=== PATIENT | male | born 1965 | race African-American/Black ===

== ENCOUNTER 2021-01-01 12:56 | Inpatient (IN) | payer MEDICAID ==
[~2021-01-01] VITALS: Ht 175.3 cm; Wt 79.4 kg
[2021-01-01] MEDS ORDERED: MORPHINE SULFATE 4 MG/ML CPJ (NOT FOR IM USE) IV ONE (13:45)
[2021-01-01] MEDS ORDERED: AZITHROMYCIN 500 MG in DEXT 5% WATER 250 ML IV ONE (13:45)
[2021-01-01] MEDS ORDERED: VANCOMYCIN 1 G PREMIX 200 ML IV ONE (13:45)
[2021-01-01] MEDS ORDERED: PIPERACILLIN/TAZ 3.375G PREMIX 50 ML IV ONE (13:45)
[2021-01-01 13:54] LABS: BASOPHILS % 0.2 % (0.0-2.0); EOSINOPHILS % 0.3 % (0.0-5.0); HEMATOCRIT. 46.9 % (42.0-52.0); LYMPHOCYTES % 15.9 % (20.0-50.0); MEAN CORPUSCULAR HEMOGLOBIN 30.8 pg (28.0-32.0); MEAN CORPUSCULAR VOLUME 90.2 fL (80.0-94.0); MEAN PLATELET VOLUME 8.4 fl (7.4-10.4); MONOCYTES % 9.6 % (2.0-8.0); PLATELET 219 x1000/uL (130-400); RED CELL DISTRIBUTION WIDTH 13.3 % (11.6-14.6)
[2021-01-01 14:16] LABS: CHLORIDE 101 mEq/L (98-107)
[2021-01-01] MEDS ORDERED: ONDANSETRON HCL 4MG/2ML INJ IV PRN (16:15)
[2021-01-01] MEDS ORDERED: ACETAMINOPHEN 325MG TABLET PO PRN ×2 (16:15)
[2021-01-01] MEDS ORDERED: ZOLPIDEM TARTRATE 5MG TABLET PO PRN (16:15)
[2021-01-01] MEDS ORDERED: DOCUSATE SODIUM 100MG CAPSULE PO PRN (16:15)
[2021-01-01] MEDS ORDERED: ALBUTEROL 6.7GM HFA INHALER ORI PRN (16:15)
[2021-01-01] MEDS ORDERED: CLONIDINE 0.1MG TABLET PO PRN (16:15)
[2021-01-01] MEDS ORDERED: CEFTRIAXONE 1 G PREMIX 50 ML IV SCH ×2 (16:30→19:30)
[2021-01-01] MEDS ORDERED: NITROGLYCERIN 0.4MG TABLET SL SL PRN (16:45)
[2021-01-01] MEDS: ENOXAPARIN 40MG/0.4ML SYR SUBCUT SCH (17:00)
[2021-01-01 17:11] LABS: FOLIC ACID (FOLATE) SERUM 12.8 ng/mL (>5.38)
[2021-01-01] MEDS: GUAIFENESIN/DM 600MG/30MG ER TAB 12HR PO SCH (17:50)
[2021-01-01] MEDS: DILTIAZEM HCL 30MG TABLET PO SCH (18:00)
[2021-01-01] MEDS ORDERED: AZITHROMYCIN 500 MG in DEXT 5% WATER 250 ML IV SCH (20:00)
[2021-01-01] MEDS: ALBUTEROL 6.7GM HFA INHALER ORI SCH (21:00)
[2021-01-01 22:00] VITALS: BP 147/80
[2021-01-01] MEDS: GUAIFENESIN 200MG/10ML SUGAR FREE UDC PO PRN (23:00)
[2021-01-01] MEDS: KETOROLAC 15MG/ML VIAL IV PRN (23:01)
[2021-01-01] MEDS: DEXAMETHASONE 10 MG/ML VIAL IV SCH (23:01)
[2021-01-01] MEDS: FAMOTIDINE 20MG TABLET PO SCH (23:02)
[2021-01-01] MEDS: ASCORBIC ACID 500 MG TABLET PO SCH (23:02)
[2021-01-01] MEDS: CEFTRIAXONE 1,000 MG in DEXTROSE 5% WATER 50 ML IV SCH (23:03)
[2021-01-02] VITALS: BP 135/80
[2021-01-02 00:40] LABS: CREATINE KINASE 251 IU/L (39-308)
[2021-01-02 00:41] LABS: CREATINE KINASE MB FRACTION < 1.0 ng/mL (0.5-3.6)
[2021-01-02] MEDS: ALBUTEROL 6.7GM HFA INHALER ORI SCH ×4 (03:00→21:57)
[2021-01-02 04:00] VITALS: BP 147/69
[2021-01-02] MEDS: DILTIAZEM HCL 30MG TABLET PO SCH ×4 (06:00→18:04)
[2021-01-02 07:29] LABS: BASOPHILS % 0.3 % (0.0-2.0); HEMOGLOBIN. 15.9 g/dL (14.0-18.0); LYMPHOCYTES % 9.9 % (20.0-50.0); MEAN CORPUSCULAR HEMOGLOBIN 31.4 pg (28.0-32.0); MEAN CORPUSCULAR VOLUME 90.9 fL (80.0-94.0); MEAN PLATELET VOLUME 8.5 fl (7.4-10.4); MONOCYTES % 7.9 % (2.0-8.0); NEUTROPHILS % 81.9 % (40.0-76.0); PLATELET 203 x1000/uL (130-400); RED BLOOD CELL COUNT 5.06 mill/uL (4.7-6.1); RED CELL DISTRIBUTION WIDTH 13.6 % (11.6-14.6)
[2021-01-02 07:42] LABS: CHLORIDE 101 mEq/L (98-107)
[2021-01-02 07:52] LABS: CREATINE KINASE 232 IU/L (39-308)
[2021-01-02 07:53] LABS: PHOSPHORUS 2.8 mg/dL (2.5-4.9)
[2021-01-02 07:58] LABS: CREATINE KINASE MB FRACTION < 1.0 ng/mL (0.5-3.6)
[2021-01-02 08:00] VITALS: BP 124/73
[2021-01-02] MEDS: ZINC SULFATE 220 MG ( 50 ) CAPSULE PO SCH (09:20)
[2021-01-02] MEDS: ASPIRIN 325MG EC TABLET PO SCH (09:20)
[2021-01-02] MEDS: ASCORBIC ACID 500 MG TABLET PO SCH ×2 (09:20→21:56)
[2021-01-02] MEDS: DEXAMETHASONE 10 MG/ML VIAL IV SCH (09:21)
[2021-01-02] MEDS: FAMOTIDINE 20MG TABLET PO SCH ×2 (09:21→21:56)
[2021-01-02] MEDS: GUAIFENESIN/DM 600MG/30MG ER TAB 12HR PO SCH ×2 (09:21→21:56)
[2021-01-02] MEDS: CHOLECALCIFEROL (D3) 1000 UNIT TABLET PO SCH (09:25)
[2021-01-02] MEDS: KETOROLAC 15MG/ML VIAL IV PRN (09:26)
[2021-01-02 12:00] VITALS: BP 140/81
[2021-01-02] MEDS: AZITHROMYCIN 500 MG in DEXT 5% WATER 250 ML IV SCH (13:36)
[2021-01-02 16:00] VITALS: BP 134/71
[2021-01-02] MEDS ORDERED: AZITHROMYCIN 500 MG in DEXT 5% WATER 250 ML IV SCH (16:30)
[2021-01-02] MEDS: MAGNESIUM/ALUMINUM HYDROXIDE/SIMETHICONE 30ML UDC PO PRN (18:02)
[2021-01-02] MEDS: ENOXAPARIN 40MG/0.4ML SYR SUBCUT SCH (18:03)
[2021-01-02 20:00] VITALS: BP 129/75
[2021-01-03] VITALS: BP 122/77
[2021-01-03] MEDS: CEFTRIAXONE 1,000 MG in DEXTROSE 5% WATER 50 ML IV SCH (01:05)
[2021-01-03] MEDS: ALBUTEROL 6.7GM HFA INHALER ORI SCH ×4 (03:00→21:54)
[2021-01-03 04:00] VITALS: BP 108/59
[2021-01-03] MEDS: DILTIAZEM HCL 30MG TABLET PO SCH ×4 (06:21→17:52)
[2021-01-03] MEDS: GUAIFENESIN 200MG/10ML SUGAR FREE UDC PO PRN (06:26)
[2021-01-03 08:00] VITALS: BP 132/74
[2021-01-03] MEDS: CHOLECALCIFEROL (D3) 1000 UNIT TABLET PO SCH (08:55)
[2021-01-03] MEDS: MAGNESIUM/ALUMINUM HYDROXIDE/SIMETHICONE 30ML UDC PO PRN (08:55)
[2021-01-03] MEDS: DEXAMETHASONE 10 MG/ML VIAL IV SCH (08:56)
[2021-01-03] MEDS: FAMOTIDINE 20MG TABLET PO SCH ×2 (08:56→21:54)
[2021-01-03] MEDS: GUAIFENESIN/DM 600MG/30MG ER TAB 12HR PO SCH ×2 (08:56→21:54)
[2021-01-03] MEDS: ASPIRIN 325MG EC TABLET PO SCH (08:56)
[2021-01-03] MEDS: ASCORBIC ACID 500 MG TABLET PO SCH ×2 (08:56→21:54)
[2021-01-03] MEDS: ZINC SULFATE 220 MG ( 50 ) CAPSULE PO SCH (08:56)
[2021-01-03 12:00] VITALS: BP_SYST 129; BP_SYST 132; BP_DIAS 74; BP_DIAS 78
[2021-01-03] MEDS: AZITHROMYCIN 500 MG in DEXT 5% WATER 250 ML IV SCH (14:36)
[2021-01-03 16:00] VITALS: BP 121/65
[2021-01-03] MEDS: ENOXAPARIN 40MG/0.4ML SYR SUBCUT SCH (17:52)
[2021-01-03 20:00] VITALS: BP 131/69
[2021-01-04] VITALS: BP 126/70
[2021-01-04] MEDS: DILTIAZEM HCL 30MG TABLET PO SCH ×4 (01:15→17:23)
[2021-01-04] MEDS: CEFTRIAXONE 1,000 MG in DEXTROSE 5% WATER 50 ML IV SCH ×2 (01:15→22:41)
[2021-01-04] MEDS: ALBUTEROL 6.7GM HFA INHALER ORI SCH ×4 (03:00→20:19)
[2021-01-04 04:00] VITALS: BP 137/75
[2021-01-04 08:00] VITALS: BP 106/50
[2021-01-04] MEDS: CHOLECALCIFEROL (D3) 1000 UNIT TABLET PO SCH (08:20)
[2021-01-04] MEDS: GUAIFENESIN/DM 600MG/30MG ER TAB 12HR PO SCH ×2 (08:20→20:19)
[2021-01-04] MEDS: FAMOTIDINE 20MG TABLET PO SCH ×2 (08:21→20:19)
[2021-01-04] MEDS: DEXAMETHASONE 10 MG/ML VIAL IV SCH (08:21)
[2021-01-04] MEDS: ZINC SULFATE 220 MG ( 50 ) CAPSULE PO SCH (08:21)
[2021-01-04] MEDS: ASPIRIN 325MG EC TABLET PO SCH (08:21)
[2021-01-04] MEDS: ASCORBIC ACID 500 MG TABLET PO SCH ×2 (08:21→20:19)
[2021-01-04 12:00] VITALS: BP 125/53
[2021-01-04] MEDS: AZITHROMYCIN 500 MG in DEXT 5% WATER 250 ML IV SCH (13:24)
[2021-01-04 16:00] VITALS: BP 124/71
[2021-01-04] MEDS: ENOXAPARIN 40MG/0.4ML SYR SUBCUT SCH (16:37)
[2021-01-04 20:00] VITALS: BP 124/74
[2021-01-04] MEDS: MAGNESIUM/ALUMINUM HYDROXIDE/SIMETHICONE 30ML UDC PO PRN (22:41)
[2021-01-05] VITALS: BP 116/60
[2021-01-05] MEDS: ALBUTEROL 6.7GM HFA INHALER ORI SCH ×4 (03:00→20:29)
[2021-01-05 04:00] VITALS: BP 130/68
[2021-01-05] MEDS: DILTIAZEM HCL 30MG TABLET PO SCH ×5 (06:00→23:23)
[2021-01-05 08:00] VITALS: BP 114/66
[2021-01-05] MEDS: GUAIFENESIN/DM 600MG/30MG ER TAB 12HR PO SCH ×2 (08:02→20:29)
[2021-01-05] MEDS: ASPIRIN 325MG EC TABLET PO SCH (08:02)
[2021-01-05] MEDS: CHOLECALCIFEROL (D3) 1000 UNIT TABLET PO SCH (08:02)
[2021-01-05] MEDS: FAMOTIDINE 20MG TABLET PO SCH ×2 (08:02→20:29)
[2021-01-05] MEDS: ASCORBIC ACID 500 MG TABLET PO SCH ×2 (08:02→20:29)
[2021-01-05] MEDS: ZINC SULFATE 220 MG ( 50 ) CAPSULE PO SCH (08:02)
[2021-01-05] MEDS: DEXAMETHASONE 10 MG/ML VIAL IV SCH (08:02)
[2021-01-05 12:00] VITALS: BP 111/62
[2021-01-05] MEDS: AZITHROMYCIN 500 MG in DEXT 5% WATER 250 ML IV SCH (13:13)
[2021-01-05 16:00] VITALS: BP 118/76
[2021-01-05] MEDS: ENOXAPARIN 40MG/0.4ML SYR SUBCUT SCH (17:13)
[2021-01-05 20:00] VITALS: BP 117/66
[2021-01-05] MEDS: CEFTRIAXONE 1,000 MG in DEXTROSE 5% WATER 50 ML IV SCH (23:23)
[2021-01-06] VITALS: BP 120/77
[2021-01-06] MEDS: ALBUTEROL 6.7GM HFA INHALER ORI SCH ×2 (03:20→08:29)
[2021-01-06 04:00] VITALS: BP 112/67
[2021-01-06] MEDS: DILTIAZEM HCL 30MG TABLET PO SCH (05:56)
[2021-01-06 07:46] VITALS: BP 134/78
[2021-01-06] MEDS: ZINC SULFATE 220 MG ( 50 ) CAPSULE PO SCH (08:28)
[2021-01-06] MEDS: ASCORBIC ACID 500 MG TABLET PO SCH (08:28)
[2021-01-06] MEDS: FAMOTIDINE 20MG TABLET PO SCH (08:28)
[2021-01-06] MEDS: CHOLECALCIFEROL (D3) 1000 UNIT TABLET PO SCH (08:28)
[2021-01-06] MEDS: ASPIRIN 325MG EC TABLET PO SCH (08:28)
[2021-01-06] MEDS: GUAIFENESIN/DM 600MG/30MG ER TAB 12HR PO SCH (08:28)
[2021-01-06] MEDS: DEXAMETHASONE 10 MG/ML VIAL IV SCH (08:28)
[2021-01-06 09:46] VITALS: BP 134/78
== END 2021-01-06 11:45 | disposition home or self-care (01) | DRG 137 ==
LOC: ER 12:56 → 7WST 17:49 → ENRESERV 20:46
PROVIDERS: ADMIT Internal Medicine; ATTEND Internal Medicine
DX: U07.1 COVID-19 (principal); J96.01 Acute respiratory failure with hypoxia; A41.9 Sepsis, unspecified organism; E44.0 Moderate protein-calorie malnutrition; J18.9 Pneumonia, unspecified organism; I10 Essential (primary) hypertension; R74.01 Elevation of levels of liver transaminase levels; Z78.9 Other specified health status; Z91.14 Patient's other noncompliance with medication regimen; Z68.25 Body mass index [BMI] 25.0-25.9, adult
CPT/HCPCS: 36415; 71045; 80053; 80061; 80320; 82550; 82553; 82728; 82746; 83036; 83540; 83550; 83605; 83615; 83735; 83880; 84100; 84145; 84484; 85025; 85379; 87426; 93005; 93970; 99285; J0456; J0696; J1100; J1650; J1885; J2270; J2543; J3370; J7040; J7060; G0480